=== PATIENT | female | born 1960 | race Hispanic/Latino ===

== ENCOUNTER 2017-03-20 14:56 | Emergency (ER) | payer SELFPAY ==
[2017-03-20 15:39] VITALS: BP 135/94
--- NOTE | 2017-03-20 17:09 | XRay Report ---
FINAL REPORT EXAM: XR HUMERUS 2+V LT HISTORY: RT ARM PAIN/FALL COMPARISONS: None. FINDINGS: AP and lateral views left humerus Transverse fracture extends through the surgical neck of the left humerus. The greater tuberosity is fractured without significant displacement/angulation. Glenohumeral joint appears intact. Mild acromioclavicular osteoarthrosis. Acromioclavicular and coracoclavicular intervals are within normal limits. No other fractures are seen. IMPRESSION: Minimally displaced fractures involving the surgical neck and greater tuberosity of the left humerus.
[2017-03-20] MEDS ORDERED: NORCO 5/325 PO ONE (17:17)
[2017-03-20] MEDS ORDERED: ZOFRAN ODT PO ONE (17:17)
--- NOTE | 2017-03-20 17:26 | Emergency Department Report ---
Upper Extremity - HPI Chief Complaint: Extremity Injury, Upper Stated Complaint: LEFT ARM INJURY/FALL Time Seen by Provider: 03/20/17 17:07 Upper Extremity: Left Shoulder Occurred When: Today Mechanism: Fall Severity: moderate Symptoms: No Pain with Movement, No Deformity, No Limited Range of Movement, No Numbness, No Weakness, No Swelling, No Bruising/Ecchymosis, No Laceration or Abrasion Other History: 57-year-old female past medical history none presents with complaint of left shoulder pain status post mechanical fall. While trying to kill an insect in her home she swatted at it lost her balance fell onto her left shoulder and felt immediate sharp pain. Patient is having significant difficulty ranging her left shoulder. Denies any loss of consciousness denies any other injuries. Patient is awake alert and oriented 3 accompanied by her mother and states the pain is currently 9 out of 10. ED Review of Systems ROS: Stated complaint: LEFT ARM INJURY/FALL Other details as noted in HPI Constitutional: denies: chills, fever Eyes: denies: eye pain, eye discharge, vision change ENT: denies: ear pain, throat pain Respiratory: denies: cough, shortness of breath, wheezing Cardiovascular: denies: chest pain, palpitations Endocrine: no symptoms reported Gastrointestinal: denies: abdominal pain, nausea, diarrhea Genitourinary: denies: urgency, dysuria, discharge Musculoskeletal: denies: back pain, joint swelling, arthralgia Skin: denies: rash, lesions Neurological: denies: headache, weakness, paresthesias Psychiatric: denies: anxiety, depression Hematological/Lymphatic: denies: easy bleeding, easy bruising ED Past Medical Hx - Past Medical History Previous Medical History?: No - Surgical History Past Surgical History?: No - Social History Smoking Status: Current Every Day Smoker Substance Use Type: None - Medications Home Medications: Home Medications Medication Instructions Recorded Confirmed Last Taken Type HYDROcodone/APAP 5-325 [Cortez 1 each PO Q6HR PRN #20 tablet 03/20/17 Unknown Rx 5/325] Naproxen [Naprosyn TAB] 500 mg PO BID PRN #30 tablet 03/20/17 Unknown Rx Upper Extremity Exam - Exam General: Vital signs noted. No distress. Alert and acting appropriately. Head and Torso: No HEENT Abnormality, No Neck Tenderness, No Chest/Lungs Abnormality, No Abdominal Tenderness, No Back Tenderness Shoulder Exam: Yes Shoulder Tenderness (tenderness on palpation left shoulder), No Clavicle Tenderness, No Normal Range of Motion in Shoulder (patient cannot range rotate internally externally or abduct or abduct his left shoulder secondary to severe pain), No Shoulder Deformity, No AC Joint Tenderness Arm Exam: No Arm/Humerus Tenderness, No Arm Deformity Elbow: No Elbow Tenderness, No Normal Range of Motion in Elbow, No Elbow Deformity Forearm: No Forearm Tenderness, No Forearm Deformity, No Pain with Pronation, No Pain with Supination Wrist: Yes Normal ROM in Wrist, No Wrist Tenderness, No Wrist Deformity, No Snuffbox Tenderness, No Pain with Axial Thumb Compression Hand: Yes Normal ROM in Digit(s), No Hand Tenderness, No Hand Deformity, No Digit Tenderness, No Digit(s) Deformity, No Tendon Dysfunction CMS Exam: Yes Normal Distal Pulses (distal radial brachial and ulnar pulses strong to palpation), Yes Normal Capillary Refill (capillary refill less than one second all fingers left hand), Yes Normal Distal Sensation (distal sensation proprioception and 2. discrimination intact left upper extremity), No Broken Skin Front/Back of Body, Lg (Color): 1 - severe pain on palpation here ED Course Vital Signs 03/20/17 15:33 Temperature 98.5 F Pulse Rate 97 H Respiratory 18 Rate Blood Pressure 135/94 O2 Sat by Pulse 99 Oximetry ED Medical Decision Making - Medical Decision Making A/P: Left shoulder pain, left humerus fracture 1-patient placed in left shoulder immobilizer 2-left upper extremity neurovascularly intact distal sensation and distal pulses intact on clinical exam 3-short course Cortez and naproxen when necessary 4-I stressed the importance of follow-up with an orthopedic physician to the patient. She stated she understood the clinical importance of following up with an orthopedic doctor. Conversation discussed with her mother at bedside. Critical care attestation.: If time is entered above; I have spent that time in minutes in the direct care of this critically ill patient, excluding procedure time. ED Disposition Clinical Impression: Fracture of humerus, proximal, left, closed Qualifiers: Encounter type: initial encounter Fracture morphology: other fracture Fracture alignment: nondisplaced Qualified Code(s): S42.295A - Other nondisplaced fracture of upper end of left humerus, initial encounter for closed fracture Humerus fracture Qualifiers: Encounter type: initial encounter Humerus Location: greater tuberosity Fracture type: closed Fracture alignment: nondisplaced Laterality: left Qualified Code(s): S42.255A - Nondisplaced fracture of greater tuberosity of left humerus, initial encounter for closed fracture Disposition: TO HOME OR SELFCARE Is pt being admited?: No Does the pt Need Aspirin: No Condition: Stable Instructions: RICE Therapy (ED), Arm Fracture in Adults (ED) Prescriptions: HYDROcodone/APAP 5-325 [Cortez 5/325] 1 each PO Q6HR PRN #20 tablet PRN Reason: Pain Naproxen [Naprosyn TAB] 500 mg PO BID PRN #30 tablet PRN Reason: Pain Referrals: YOVANI BOLTON MD [Staff Physician] - 3-5 Days [facility] [Provider Group] - 3-5 Days [facility] [Outside] - 3-5 Days [facility] [Outside] - 3-5 Days Forms: Accompanied Note, Work/School Release Form(ED) Time of Disposition: 17:45
== END 2017-03-20 18:09 | disposition home or self-care (01) ==
LOC: ED 14:56
DX: S42.202A Unspecified fracture of upper end of left humerus, initial encounter for closed fracture (principal); F17.210 Nicotine dependence, cigarettes, uncomplicated; W18.30XA Fall on same level, unspecified, initial encounter; Y93.89 Activity, other specified; Y92.009 Unspecified place in unspecified non-institutional (private) residence as the place of occurrence of the external cause; Y99.8 Other external cause status
CPT/HCPCS: 99284; Q0162

== ENCOUNTER 2021-09-25 07:33 | Inpatient (IN) | payer SELFPAY ==
[2021-09-25] MEDS ORDERED: ONDANSETRON 4 MG/2 ML INJ IV ONE (08:12)
[2021-09-25] MEDS ORDERED: SODIUM CHLORIDE 0.9% 1000 ML 1,000 ML IV ONE (08:12)
--- NOTE | 2021-09-25 08:15 | Emergency Department Report ---
HPI - General Chief Complaint: Chest Pain PUI?: No Time Seen by Provider: 09/25/21 08:04 - HPI HPI: This is the third day that the patient has had a mostly constant left presternal burning chest pain radiating to her upper left back associated with many episodes of vomiting of clear emesis. She denies diaphoresis shortness of br eath pleurisy diarrhea abdominal pain or any other associated symptoms. Nothing makes it better nor worse other than fluids which makes it worse. ED Past Medical Hx - Past Medical History Previous Medical History?: No - Surgical History Past Surgical History?: No - Family History Family history: no significant - Social History Smoking Status: Current Every Day Smoker Substance Use Type: None - Medications Home Medications: Home Medications Medication Instructions Recorded Confirmed Last Taken Type No Known Home Medications [No 09/25/21 09/25/21 Unknown History Reported Home Medications] ED Review of Systems ROS: Stated complaint: DIFFICULTY BREATHING/CHEST PAIN Other details as noted in HPI Comment: All other systems reviewed and negative Physical Exam - Physical Exam Vital Signs: Vital Signs 09/25/21 07:58 Temperature 97.9 F Pulse Rate 119 H Respiratory 25 H Rate Blood Pressure 118/74 [Left] O2 Sat by Pulse 97 Oximetry Physical Exam: Physical Exam Constitutional: General: No acute distress. Appearance: No diaphoresis. HENT: Head: Normocephalic. Mucosal membranes seem dry. Eyes: Pupils: Pupils are equal, round, and reactive to light. Neck: Musculoskeletal: Normal range of motion. Cardiovascular: Rate and Rhythm: Normal rate and regular rhythm. Pulses: Intact distal pulses. Heart sounds: Normal heart sounds. No murmur. Pulmonary: Effort: No respiratory distress. Breath sounds: No wheezing or rales. Chest: Chest wall: No tenderness. Abdominal: General: There is no distension. Palpations: There is no mass. Tenderness: There is no abdominal tenderness. There is no guarding or rebound. Musculoskeletal: Normal range of motion. Skin: General: Skin is warm and dry. Neurological: Mental Status: Alert and oriented to person, place, and time. Psychiatric: Mood and Affect: Mood and affect normal. Cognition and Memory: Memory normal. Judgment: Judgment normal. ED Course Vital Signs 09/25/21 07:58 Temperature 97.9 F Pulse Rate 119 H Respiratory 25 H Rate Blood Pressure 118/74 [Left] O2 Sat by Pulse 97 Oximetry - Reevaluation(s) Reevaluation #1: 09/25/21 09:45 On evaluation the patient is more comfortable. Her troponin was elevated at 1.6. Her chest x-ray was normal. Her EKG done at 8:49 AM showed rate of 113, tachycardia. The rhythm is sinus tachycardia. There are some ST segment depressions globally consistent with possible ischemia. I went ahead and gave the patient some aspirin and also some Lovenox and the patient will be admitted. I spoke with who will be admitting the patient. Total critical care time, 30 minutes. 09/25/21 09:46 ED Medical Decision Making - Lab Data Result diagrams: 09/25/21 08:36 09/25/21 08:36 Critical care attestation.: If time is entered above; I have spent that time in minutes in the direct care of this critically ill patient, excluding procedure time. ED Disposition Clinical Impression: Non-STEMI (non-ST elevated myocardial infarction) Disposition: 02 [facility] Is pt being admited?: Yes Does the pt Need Aspirin: Yes Condition: Serious
--- NOTE | 2021-09-25 08:31 | XRay Report ---
CHEST 1 VIEW INDICATION / CLINICAL INFORMATION: Chest Pain. COMPARISON: None available. FINDINGS: SUPPORT DEVICES: None. HEART / MEDIASTINUM: No significant abnormality. LUNGS / PLEURA: The lungs are clear. No pneumothorax. BONES: No significant osseous abnormality. ADDITIONAL FINDINGS: No significant additional findings. IMPRESSION: 1. No active cardiopulmonary disease. Signer Name: Sudheer Dover II, MD Signed: 09/25/2021 8:27 AM Workstation Name: [id number]
[2021-09-25 08:55] LABS: Basophils % (Auto) 0.5 % (0.0-1.8); Eosinophils % (Auto) 0.1 % (0.0-4.3); Lymphocytes # (Auto) 1.1 K/mm3 (1.2-5.4); Lymphocytes % (Auto) 12.1 % (13.4-35.0); Mean Corpuscular HGB Conc 37 % (30-34); Mean Corpuscular Volume 93 fl (79-97); Monocytes # (Auto) 0.5 K/mm3 (0.0-0.8); Monocytes % (Auto) 5.8 % (0.0-7.3); Platelet Count 257 K/mm3 (140-440); Red Cell Distribution Width 13.7 % (13.2-15.2)
[2021-09-25 08:56] LABS: Hematocrit 47.4 % (30.3-42.9); Hemoglobin 17.3 gm/dl (10.1-14.3)
[2021-09-25 09:18] LABS: Alanine Aminotransferase 271 units/L (7-56); Albumin 4.3 g/dL (3.9-5); Blood Urea Nitrogen 12 mg/dL (7-17); Calcium 9.7 mg/dL (8.4-10.2); Hemolysis Index 5
[2021-09-25 09:28] LABS: BUN/Creatinine Ratio 17
[2021-09-25] MEDS ORDERED: ASPIRIN 81 MG TAB CHEW ONE (09:34)
[2021-09-25 09:46] LABS: Chol/HDL Ratio 6.57 %; HDL Cholesterol 33 mg/dL (40-59); LDL Cholesterol,Direct 178 mg/dL (50-130)
[2021-09-25] MEDS ORDERED: ENOXAPARIN 100 MG/1 ML INJ SUB-Q ONE (10:00)
[2021-09-25] MEDS ORDERED: oxyCODONE /ACETAMINOPHEN 5-325MG TAB PO PRN (10:40)
[2021-09-25] MEDS ORDERED: ONDANSETRON 4 MG/2 ML INJ IV PRN (10:40)
[2021-09-25] MEDS ORDERED: ACETAMINOPHEN 325 MG TAB PO PRN (10:40)
[2021-09-25] MEDS ORDERED: DOCUSATE SODIUM 100 MG CAP PO PRN (10:40)
[2021-09-25] MEDS ORDERED: MORPHINE 4 MG/1 ML INJ IV PRN (10:40)
[2021-09-25] MEDS ORDERED: ASPIRIN 81 MG TAB CHEW PO ONE (11:03)
--- NOTE | 2021-09-25 11:05 | History and Physical Report ---
History of Present Illness Date of examination: 09/25/21 Date of admission: 09/25/2021 Chief complaint: Chest pain History of present illness: The patient is a 62-year-old female with no significant past medical history aside from tobacco dependence who presented with 3 days of left sternal chest pain with radiation to her back in addition to nonbloody, nonbilious emesis. Patient denies any diaphoresis, shortness of breath, dyspnea, peripheral edema, recent travel, hormone treatment, immobilization, or trauma. In the ED the patient was found to be tachycardic to 119 and tachypneic to 25. The patient's blood pressure was within normal limits and she was saturating 97% on room air. Patient's labs were remarkable for elevated troponin of 1.620, hyponatremia of 132, and hyperlipidemia. Patient underwent chest x-ray that was unremarkable. In the ED, the patient was administered Zofran and IV fluids. The patient will be admitted to the medicine service for management of NSTEMI. Past History Past Medical History: No medical history Past Surgical History: No surgical history Social history: , lives with family, smoking, full code Family history: hypertension Medications and Allergies Allergies Allergy/AdvReac Type Severity Reaction Status Date / Time No Known Allergies Allergy Verified 09/25/21 09:13 Home Medications Medication Instructions Recorded Confirmed Last Taken Type No Known Home Medications [No 09/25/21 09/25/21 Unknown History Reported Home Medications] Active Meds: Active Medications Acetaminophen (Acetaminophen 325 Mg Tab) 650 mg PO Q4H PRN PRN Reason: Pain MILD(1-3)/Fever >100.5/DUARTE Docusate Sodium (Docusate Sodium 100 Mg Cap) 100 mg PO BID PRN PRN Reason: Constipation Famotidine (Famotidine 20 Mg Tab) 20 mg PO BID BUCK Heparin Sodium (Porcine) (Heparin 10,000 Units/10 Ml Vial) 3,000 unit IV ONCE ONE Stop: 09/25/21 10:53 Heparin Sodium/Sodium Chloride (Heparin/ 0.45% Nacl-25,000 Unit/500 Ml) 25,000 unit in 500 mls @ 0 mls/hr IV TITRATE BUCK; Protocol Morphine Sulfate (Morphine 4 Mg/1 Ml Inj) 2 mg IV Q4H PRN PRN Reason: Pain , Severe (7-10) Ondansetron HCl (Ondansetron 4 Mg/2 Ml Inj) 4 mg IV Q8H PRN PRN Reason: Nausea And Vomiting Oxycodone/Acetaminophen (Oxycodone /Acetaminophen 5-325mg Tab) 1 tab PO Q6H PRN PRN Reason: Pain, Moderate (4-6) Sodium Chloride (Sodium Chloride 0.9% 10 Ml Flush Syringe) 10 ml IV BID BUCK Sodium Chloride (Sodium Chloride 0.9% 10 Ml Flush Syringe) 10 ml IV PRN PRN PRN Reason: LINE FLUSH Review of Systems All systems: negative Cardiovascular: chest pain Gastrointestinal: nausea, vomiting Exam - Constitutional Vitals: Temp Pulse Resp BP Pulse Ox 97.9 F 119 H 25 H 118/74 98 09/25/21 07:58 09/25/21 07:58 09/25/21 07:58 09/25/21 07:58 09/25/21 08:15 General appearance: Present: no acute distress, well-nourished - EENT Eyes: Present: PERRL, EOM intact ENT: hearing intact, clear oral mucosa, dentition normal - Neck Neck: Present: supple, normal ROM - Respiratory Respiratory effort: normal Respiratory: bilateral: CTA - Cardiovascular Rhythm: regular Heart Sounds: Present: S1 & S2 - Extremities Extremities: no ischemia, pulses intact, pulses symmetrical, No edema, normal temperature, normal color, Full ROM Peripheral Pulses: within normal limits - Abdominal General gastrointestinal: Present: soft, non-tender, non-distended, normal bowel sounds Female genitourinary: Present: deferred - Rectal Rectal Exam: deferred - Integumentary Integumentary: Present: clear, warm, dry - Musculoskeletal Musculoskeletal: strength equal bilaterally - Psychiatric Psychiatric: appropriate mood/affect, intact judgment & insight, memory intact, cooperative - Neurologic Neurologic: CNII-XII intact, moves all extremities - Allied Health Allied health notes reviewed: nursing HEART Score - HEART Score Troponin: Troponin T 1.620 ng/mL (0.00-0.029) H* 09/25/21 08:36 Results - Labs CBC & Chem 7: 09/25/21 08:36 09/25/21 08:36 Labs: Laboratory Last Values WBC 8.9 K/mm3 (4.5-11.0) 09/25/21 08:36 RBC 5.10 M/mm3 (3.65-5.03) H 09/25/21 08:36 Hgb 17.3 gm/dl (10.1-14.3) H 09/25/21 08:36 Hct 47.4 % (30.3-42.9) H 09/25/21 08:36 MCV 93 fl (79-97) 09/25/21 08:36 MCH 34 pg (28-32) H 09/25/21 08:36 MCHC 37 % (30-34) H 09/25/21 08:36 RDW 13.7 % (13.2-15.2) 09/25/21 08:36 Plt Count 257 K/mm3 (140-440) 09/25/21 08:36 Lymph % (Auto) 12.1 % (13.4-35.0) L 09/25/21 08:36 [place] % (Auto) 5.8 % (0.0-7.3) 09/25/21 08:36 Eos % (Auto) 0.1 % (0.0-4.3) 09/25/21 08:36 Baso % (Auto) 0.5 % (0.0-1.8) 09/25/21 08:36 Lymph # (Auto) 1.1 K/mm3 (1.2-5.4) L 09/25/21 08:36 [place] # (Auto) 0.5 K/mm3 (0.0-0.8) 09/25/21 08:36 Eos # (Auto) 0.0 K/mm3 (0.0-0.4) 09/25/21 08:36 Baso # (Auto) 0.0 K/mm3 (0.0-0.1) 09/25/21 08:36 Seg Neutrophils % 81.5 % (40.0-70.0) H 09/25/21 08:36 Seg Neutrophils # 7.3 K/mm3 (1.8-7.7) 09/25/21 08:36 Sodium 132 mmol/L (137-145) L 09/25/21 08:36 Potassium 4.2 mmol/L (3.6-5.0) 09/25/21 08:36 Chloride 92.1 mmol/L (98-107) L 09/25/21 08:36 Carbon Dioxide 22 mmol/L (22-30) 09/25/21 08:36 Anion Gap 22 mmol/L 09/25/21 08:36 BUN 12 mg/dL (7-17) 09/25/21 08:36 Creatinine 0.7 mg/dL (0.6-1.2) 09/25/21 08:36 Estimated GFR > 60 ml/min 09/25/21 08:36 BUN/Creatinine Ratio 17 % 09/25/21 08:36 Glucose 156 mg/dL (65-100) H 09/25/21 08:36 Calcium 9.7 mg/dL (8.4-10.2) 09/25/21 08:36 Total Bilirubin 1.60 mg/dL (0.1-1.2) H 09/25/21 08:36 AST 398 units/L (5-40) H 09/25/21 08:36 ALT 271 units/L (7-56) H 09/25/21 08:36 Alkaline Phosphatase 86 units/L (35-129) 09/25/21 08:36 Troponin T 1.620 ng/mL (0.00-0.029) H* 09/25/21 08:36 Total Protein 8.1 g/dL (6.3-8.2) 09/25/21 08:36 Albumin 4.3 g/dL (3.9-5) 09/25/21 08:36 Albumin/Globulin Ratio 1.1 % 09/25/21 08:36 Triglycerides 97 mg/dL (2-149) 09/25/21 08:36 Cholesterol 217 mg/dL (50-199) H 09/25/21 08:36 LDL Cholesterol Direct 178 mg/dL (50-130) H 09/25/21 08:36 HDL Cholesterol 33 mg/dL (40-59) L 09/25/21 08:36 Cholesterol/HDL Ratio 6.57 % 09/25/21 08:36 Lipase 35 units/L (13-60) 09/25/21 08:36 Assessment and Plan Assessment and plan: The patient is a 62-year-old female with no significant past medical history aside from tobacco dependence who presented with 3 days of left sternal chest pain with radiation to her back in addition to nonbloody, nonbilious emesis. Patient's labs were remarkable for elevated troponin of 1.620, hyponatremia of 132, and hyperlipidemia. Patient underwent chest x-ray that was unremarkable. The patient will be admitted to the medicine service for management of NSTEMI. #NSTEMI Troponin 1.620--> continuing to trend troponins Ordering aspirin 325 mg for antiplatelet effect, ordering telemetry, and initiating heparin drip with bolus Cardiology consulted; pending recs Continue as needed analgesics Ordering hemoglobin A1c for better risk stratification #SIRS Heart rate 119, respiratory rate 25 Likely secondary to chest pain and ACS as opposed to infectious etiology Continue to monitor. Should improve as chest pain resolves. #Hyperlipidemia Total cholesterol 217, HDL 33, LDL 178 ASCVD risk score indicates moderate to high intensity statin due to risk of cardiovascular event being 10.2%. Starting atorvastatin 40 mg daily. #Hyponatremia Sodium 132 Likely secondary to history of recurrent emesis. Continue to monitor with daily BMP. #Vomiting Continue as needed antiemetics. Continue to monitor. #Tobacco dependence #Tobacco/Smoking cessation counseling - Counseled patient about the importance of smoking cessation and the possible sequelae as a result of continued tobacco consumption. The patient expresses understanding. -Time: +15 mins #Advanced care planning -Disease education conducted, care plan discussed, diagnoses discussed, prognosis discussed, and patient acknowledges understanding with care plan -Time: +30 min Advance Directives: No VTE prophylaxis?: Chemical Plan of care discussed with patient/family: Yes
[2021-09-25 11:45] LABS: INR 1.01 (0.87-1.13); Partial Thromboplastin Time 31.7 Sec. (24.2-36.6)
--- NOTE | 2021-09-25 11:47 | Electrocardiograph Report ---
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
[2021-09-25] MEDS ORDERED: NITROGLYCERIN 0.4 MG TAB SUBL SL PRN (11:49)
[2021-09-25] MEDS: FAMOTIDINE 20 MG TAB PO SCH ×2 (12:06→22:35)
[2021-09-25] MEDS ORDERED: HEPARIN 10,000 UNITS/10 ML VIAL IV ONE (13:00)
[2021-09-25] MEDS: HEPARIN/ 0.45% NACL DRIP 25,000 UNIT/500 ML BAG IV SCH (17:49)
[2021-09-26] MEDS: HEPARIN/ 0.45% NACL DRIP 25,000 UNIT/500 ML BAG IV SCH ×2 (02:08→18:32)
[2021-09-26 06:51] LABS: BUN/Creatinine Ratio 34; Blood Urea Nitrogen 27 mg/dL (7-17); Hemolysis Index 12
[2021-09-26 06:53] LABS: Hematocrit 43.9 % (30.3-42.9); Hemoglobin 14.9 gm/dl (10.1-14.3); Mean Corpuscular HGB Conc 34 % (30-34); Mean Corpuscular Volume 95 fl (79-97); Platelet Count 187 K/mm3 (140-440); Red Cell Distribution Width 13.9 % (13.2-15.2)
[2021-09-26] MEDS: ASPIRIN 81 MG TAB CHEW PO SCH (09:08)
[2021-09-26] MEDS: FAMOTIDINE 20 MG TAB PO SCH ×2 (09:09→22:10)
--- NOTE | 2021-09-26 11:06 | Consultation ---
History of Present Illness Consult date: 09/26/21 Consult reason: elevated troponin History of present illness: 62-year-old female with no significant past medical history but a history of smoking presenting with substernal chest pain associated with nausea vomiting over the past few days initially did not seek medical attention but over subsequent days symptoms became more intense and presented to the emergency room she was stable her EKG showed no acute ST segment changes but serum troponin levels were significantly elevated patient admitted with a diagnosis of non-ST elevation CO. Past History Past Medical History: No medical history Past Surgical History: No surgical history Social history: , lives with family, smoking, full code Family history: hypertension Medications and Allergies Allergies Allergy/AdvReac Type Severity Reaction Status Date / Time No Known Allergies Allergy Verified 09/25/21 09:13 Home Medications Medication Instructions Recorded Confirmed Last Taken Type No Known Home Medications [No 09/25/21 09/25/21 Unknown History Reported Home Medications] Active Meds: Active Medications Acetaminophen (Acetaminophen 325 Mg Tab) 650 mg PO Q4H PRN PRN Reason: Pain MILD(1-3)/Fever >100.5/DUARTE Aspirin (Aspirin 81 Mg Tab Chew) 81 mg PO QDAY [facility] Last Admin: 09/26/21 09:08 Dose: 81 mg Atorvastatin Calcium (Atorvastatin 40 Mg Tab) 40 mg PO QHS [facility] Last Admin: 09/25/21 22:35 Dose: 40 mg Docusate Sodium (Docusate Sodium 100 Mg Cap) 100 mg PO BID PRN PRN Reason: Constipation Famotidine (Famotidine 20 Mg Tab) 20 mg PO BID [facility] Last Admin: 09/26/21 09:09 Dose: 20 mg Heparin Sodium/Sodium Chloride (Heparin/ 0.45% Nacl-25,000 Unit/500 Ml) 25,000 unit in 500 mls @ 16 mls/hr IV TITRATE [facility]; Protocol Last Admin: 09/26/21 02:08 Dose: 850 units/hr, 17 mls/hr Morphine Sulfate (Morphine 4 Mg/1 Ml Inj) 2 mg IV Q4H PRN PRN Reason: Pain , Severe (7-10) Nitroglycerin (Nitroglycerin 0.4 Mg Tab Subl) 0.4 mg SL .Q5MIN PRN PRN Reason: Chest Pain Ondansetron HCl (Ondansetron 4 Mg/2 Ml Inj) 4 mg IV Q8H PRN PRN Reason: Nausea And Vomiting Oxycodone/Acetaminophen (Oxycodone /Acetaminophen 5-325mg Tab) 1 tab PO Q6H PRN PRN Reason: Pain, Moderate (4-6) Sodium Chloride (Sodium Chloride 0.9% 10 Ml Flush Syringe) 10 ml IV BID BUCK Last Admin: 09/26/21 09:09 Dose: 10 ml Sodium Chloride (Sodium Chloride 0.9% 10 Ml Flush Syringe) 10 ml IV PRN PRN PRN Reason: LINE FLUSH Review of Systems All systems: negative Cardiovascular: chest pain Physical Examination Vital Signs Temp Pulse Resp BP Pulse Ox 97.9 F 119 H 25 H 118/74 97 09/25/21 07:58 09/25/21 07:58 09/25/21 07:58 09/25/21 07:58 09/25/21 07:58 General appearance: no acute distress, well-nourished HEENT: Positive: PERRL, Mucus Membranes Moist Neck: Positive: neck supple, trachea midline Cardiac: Positive: Reg Rate and Rhythm, S1/S2. Negative: S3, S4, Audible Murmur Lungs: Positive: clear to auscultation, No Wheeze, Rales, Rhonchi Neuro: Positive: Grossly Intact Abdomen: Positive: Soft, Active Bowel Sounds Extremities: Absent: edema Results 09/26/21 05:59 09/26/21 05:59 Coagulation 09/25/21 Range/Units 11:13 PT 14.4 (12.2-14.9) Sec. INR 1.01 (0.87-1.13) APTT 31.7 (24.2-36.6) Sec. CBC 09/26/21 Range/Units 05:59 WBC 5.7 (4.5-11.0) K/mm3 RBC 4.60 (3.65-5.03) M/mm3 Hgb 14.9 H (10.1-14.3) gm/dl Hct 43.9 H (30.3-42.9) % Plt Count 187 (140-440) K/mm3 Lymph # (Auto) [employer] [place] # (Auto) [employer] Eos # (Auto) [employer] Baso # (Auto) [employer] Comprehensive Metabolic Panel 09/26/21 Range/Units 05:59 Sodium 136 L (137-145) mmol/L Potassium 4.5 (3.6-5.0) mmol/L Chloride 99.9 (98-107) mmol/L Carbon Dioxide 24 (22-30) mmol/L BUN 27 H (7-17) mg/dL Creatinine 0.8 (0.6-1.2) mg/dL Glucose 110 H (65-100) mg/dL Calcium 9.0 (8.4-10.2) mg/dL EKG interpretations - Telemetry EKG Rhythm: Sinus Rhythm - EKG Sinus rhythms and dysrhythmias: sinus rhythm Chamber hypertrophy or enlargement: left ventricular hypertro Repolarization changes or abnormalities: nonspecific abnormality, ST segment, and/or T wave Assessment and Plan 1. Acute non-ST segment elevation CO 2. Chronic obstructive pulmonary disease Plan. Patient is currently clinically stable she is on platelet therapy as well as heparin. Patient will be started on beta-blockers echocardiogram will be done to assess left ventricular function Patient will be scheduled for a left heart catheterization on Tuesday
--- NOTE | 2021-09-26 12:12 | Progress Note ---
Assessment and Plan Assessment and plan: The patient is a 62-year-old female with no significant past medical history aside from tobacco dependence who presented with 3 days of left sternal chest pain with radiation to her back in addition to nonbloody, nonbilious emesis. Patient's labs were remarkable for elevated troponin of 1.620, hyponatremia of 132, and hyperlipidemia. Patient underwent chest x-ray that was unremarkable. The patient will be admitted to the medicine service for management of NSTEMI. #NSTEMI Troponin 1.620--> 2.1-->2.8-->3.150-->2.870-->2.130 Ordered aspirin 325 mg for antiplatelet effect, ordering telemetry, and continue heparin drip with bolus Starting Plavix 75mg and getting TTE to evaluate EF Cardiology consulted; appreciate recs. Left heart catherization planned for Tuesday. Continue as needed analgesics Ordering hemoglobin A1c for better risk stratification #SIRS- resolved Heart rate 119, respiratory rate 25 Likely secondary to chest pain and ACS as opposed to infectious etiology Continue to monitor. Should improve as chest pain resolves. #Hyperlipidemia Total cholesterol 217, HDL 33, LDL 178 ASCVD risk score indicates moderate to high intensity statin due to risk of cardiovascular event being 10.2%. Continue atorvastatin 40 mg daily. #Hyponatremia Sodium 132 Likely secondary to history of recurrent emesis. Continue to monitor with daily BMP. #Vomiting Continue as needed antiemetics. Continue to monitor. #Tobacco dependence #Tobacco/Smoking cessation counseling - Counseled patient about the importance of smoking cessation and the possible sequelae as a result of continued tobacco consumption. The patient expresses understanding. -Time: +15 mins #Advanced care planning -Disease education conducted, care plan discussed, diagnoses discussed, prognosis discussed, and patient acknowledges understanding with care plan -Time: +30 min Disposition Plan: Continue medical management Total Time Spent with Patient (Minutes): 45 minutes History Interval history: Patient had a increase in her troponins with a max of 3.150. Hospitalist Physical - Constitutional Vitals: Temp Pulse Resp BP Pulse Ox 97.6 F 85 18 92/63 97 09/26/21 07:24 09/26/21 07:24 09/26/21 08:37 09/26/21 07:24 09/26/21 08:37 General appearance: Present: no acute distress, well-nourished - EENT Eyes: Present: PERRL, EOM intact ENT: hearing intact, clear oral mucosa, dentition normal - Neck Neck: Present: supple, normal ROM - Respiratory Respiratory effort: normal Respiratory: right: wheezing (Wheezing in right lower lobes), bilateral: CTA - Cardiovascular Rhythm: regular Heart Sounds: Present: S1 & S2 - Extremities Extremities: no ischemia, pulses intact, pulses symmetrical, No edema, normal temperature, normal color, Full ROM Peripheral Pulses: within normal limits - Abdominal General gastrointestinal: soft, non-tender, non-distended, normal bowel sounds - Integumentary Integumentary: Present: clear, warm, dry - Psychiatric Psychiatric: appropriate mood/affect, intact judgment & insight, memory intact, cooperative - Neurologic Neurologic: CNII-XII intact, moves all extremities - Allied Health Allied health notes reviewed: nursing HEART Score - HEART Score Troponin: Troponin T 2.130 ng/mL (0.00-0.029) H* D 09/26/21 05:59 Results - Labs CBC & Chem 7: 09/26/21 05:59 09/26/21 05:59 Labs: Laboratory Last Values WBC 5.7 K/mm3 (4.5-11.0) 09/26/21 05:59 RBC 4.60 M/mm3 (3.65-5.03) 09/26/21 05:59 Hgb 14.9 gm/dl (10.1-14.3) H 09/26/21 05:59 Hct 43.9 % (30.3-42.9) H 09/26/21 05:59 MCV 95 fl (79-97) 09/26/21 05:59 MCH 32 pg (28-32) 09/26/21 05:59 MCHC 34 % (30-34) 09/26/21 05:59 RDW 13.9 % (13.2-15.2) 09/26/21 05:59 Plt Count 187 K/mm3 (140-440) 09/26/21 05:59 Lymph % (Auto) District Representative 09/26/21 05:59 [place] % (Auto) District Representative 09/26/21 05:59 Eos % (Auto) District Representative 09/26/21 05:59 Baso % (Auto) District Representative 09/26/21 05:59 Lymph # (Auto) District Representative 09/26/21 05:59 [place] # (Auto) District Representative 09/26/21 05:59 Eos # (Auto) District Representative 09/26/21 05:59 Baso # (Auto) District Representative 09/26/21 05:59 Seg Neutrophils % District Representative 09/26/21 05:59 Seg Neutrophils # District Representative 09/26/21 05:59 PT 14.4 Sec. (12.2-14.9) 09/25/21 11:13 INR 1.01 (0.87-1.13) 09/25/21 11:13 APTT 31.7 Sec. (24.2-36.6) 09/25/21 11:13 Heparin Anti-Xa Level 0.28 U.I./ml (0.3-0.7) L 09/26/21 00:25 Sodium 136 mmol/L (137-145) L 09/26/21 05:59 Potassium 4.5 mmol/L (3.6-5.0) 09/26/21 05:59 Chloride 99.9 mmol/L (98-107) 09/26/21 05:59 Carbon Dioxide 24 mmol/L (22-30) 09/26/21 05:59 Anion Gap 17 mmol/L 09/26/21 05:59 BUN 27 mg/dL (7-17) H 09/26/21 05:59 Creatinine 0.8 mg/dL (0.6-1.2) 09/26/21 05:59 Estimated GFR > 60 ml/min 09/26/21 05:59 BUN/Creatinine Ratio 34 % 09/26/21 05:59 Glucose 110 mg/dL (65-100) H 09/26/21 05:59 Calcium 9.0 mg/dL (8.4-10.2) 09/26/21 05:59 Total Bilirubin 1.60 mg/dL (0.1-1.2) H 09/25/21 08:36 AST 398 units/L (5-40) H 09/25/21 08:36 ALT 271 units/L (7-56) H 09/25/21 08:36 Alkaline Phosphatase 86 units/L (35-129) 09/25/21 08:36 Troponin T 2.130 ng/mL (0.00-0.029) H* D 09/26/21 05:59 Total Protein 8.1 g/dL (6.3-8.2) 09/25/21 08:36 Albumin 4.3 g/dL (3.9-5) 09/25/21 08:36 Albumin/Globulin Ratio 1.1 % 09/25/21 08:36 Triglycerides 97 mg/dL (2-149) 09/25/21 08:36 Cholesterol 217 mg/dL (50-199) H 09/25/21 08:36 LDL Cholesterol Direct 178 mg/dL (50-130) H 09/25/21 08:36 HDL Cholesterol 33 mg/dL (40-59) L 09/25/21 08:36 Cholesterol/HDL Ratio 6.57 % 09/25/21 08:36 Lipase 35 units/L (13-60) 09/25/21 08:36 Ospina/IV: Voiding Method Toilet Active Medications - Current Medications Current Medications: Generic Name Dose Route Start Last Admin Trade Name Freq PRN Reason Stop Dose Admin Acetaminophen 650 mg 09/25/21 10:40 Acetaminophen 325 Mg Tab PO Q4H PRN Pain MILD(1-3)/Fever >100.5/DUARTE Aspirin 81 mg 09/26/21 10:00 09/26/21 09:08 Aspirin 81 Mg Tab Chew PO 81 mg QDAY BUCK Administration Atorvastatin Calcium 40 mg 09/25/21 22:00 09/25/21 22:35 Atorvastatin 40 Mg Tab PO 40 mg QHS BUCK Administration Clopidogrel Bisulfate 75 mg 09/26/21 12:00 Clopidogrel 75 Mg Tab PO QDAY [facility] Docusate Sodium 100 mg 09/25/21 10:40 Docusate Sodium 100 Mg Cap PO BID PRN Constipation Famotidine 20 mg 09/25/21 12:00 09/26/21 09:09 Famotidine 20 Mg Tab PO 20 mg BID BUCK Administration Heparin Sodium/Sodium Chloride 25,000 unit in 500 mls @ 16 mls/hr 09/25/21 13:00 09/26/21 02:08 Heparin/ 0.45% Nacl-25,000 Unit/500 Ml IV 850 units/hr TITRATE BUCK 17 mls/hr Administration Protocol 800 UNITS/HR Metoprolol Tartrate 50 mg 09/26/21 22:00 Metoprolol Tartrate 50 Mg Tab PO BID [facility] Morphine Sulfate 2 mg 09/25/21 10:40 Morphine 4 Mg/1 Ml Inj IV Q4H PRN Pain , Severe (7-10) Nitroglycerin 0.4 mg 09/25/21 11:49 Nitroglycerin 0.4 Mg Tab Subl SL .Q5MIN PRN Chest Pain Ondansetron HCl 4 mg 09/25/21 10:40 Ondansetron 4 Mg/2 Ml Inj IV Q8H PRN Nausea And Vomiting Oxycodone/Acetaminophen 1 tab 09/25/21 10:40 Oxycodone /Acetaminophen 5-325mg Tab PO Q6H PRN Pain, Moderate (4-6) Sodium Chloride 10 ml 09/25/21 22:00 09/26/21 09:09 Sodium Chloride 0.9% 10 Ml Flush Syringe IV 10 ml BID BUCK Administration Sodium Chloride 10 ml 09/25/21 10:40 Sodium Chloride 0.9% 10 Ml Flush Syringe IV PRN PRN LINE FLUSH
[2021-09-26] MEDS: CLOPIDOGREL 75 MG TAB PO SCH (12:50)
[2021-09-26] MEDS: METOPROLOL TARTRATE 50 MG TAB PO SCH (22:07)
[2021-09-27 03:22] LABS: Hematocrit 39.1 % (30.3-42.9); Hemoglobin 13.6 gm/dl (10.1-14.3)
[2021-09-27 03:38] LABS: Blood Urea Nitrogen 18 mg/dL (7-17); Calcium 8.9 mg/dL (8.4-10.2); Hemolysis Index 4
[2021-09-27 03:44] LABS: BUN/Creatinine Ratio 30
--- NOTE | 2021-09-27 11:06 | Progress Note ---
Assessment and Plan 1. Acute non-ST segment elevation PR 2. Chronic obstructive pulmonary disease Echocardiogram shows normal left ventricular size and global left ventricular systolic function left ventricular ejection fraction of 50 to 55% Plan. Patient is currently stable asymptomatic she will be scheduled for left heart catheterization in the morning Subjective Date of service: 09/27/21 Principal diagnosis: Acute PR Interval history: No chest pains Objective Vital Signs Temp Pulse Resp BP BP Pulse Ox 09/27/21 08:11 97.4 F L 89 20 97/66 98 09/27/21 08:04 17 94 09/27/21 04:42 90/56 09/27/21 04:11 98.6 F 79 16 82/54 94 09/27/21 03:03 97 09/26/21 23:41 98.6 F 88 16 87/60 96 09/26/21 19:45 91 H 09/26/21 19:26 97.4 F L 91 H 16 92/66 98 09/26/21 15:22 97.6 F 97 H 18 99/66 97 09/26/21 11:33 97.3 F L 95 H 18 93/67 99 - Physical Examination General: Appears Well HEENT: Positive: PERRL, Mucus Membranes Moist Neck: Positive: neck supple, trachea midline Cardiac: Positive: Regular Rate, S1/S2, PMI, Dilated, Laterally Displaced. Negative: S3, S4 Lungs: Positive: clear to auscultation, No Wheeze, Rales, Rhonchi Neuro: Positive: Grossly Intact Abdomen: Positive: Soft, Active Bowel Sounds Extremities: Absent: edema - Labs and Meds CBC 09/27/21 Range/Units 03:08 Hgb 13.6 (10.1-14.3) gm/dl Hct 39.1 (30.3-42.9) % Plt Count 193 (140-440) K/mm3 Comprehensive Metabolic Panel 09/27/21 Range/Units 03:08 Sodium 133 L (137-145) mmol/L Potassium 4.1 (3.6-5.0) mmol/L Chloride 98.6 (98-107) mmol/L Carbon Dioxide 25 (22-30) mmol/L BUN 18 H (7-17) mg/dL Creatinine 0.6 (0.6-1.2) mg/dL Glucose 107 H (65-100) mg/dL Calcium 8.9 (8.4-10.2) mg/dL - EKG Sinus rhythms and dysrhythmias: sinus rhythm Chamber hypertrophy or enlargement: left ventricular hypertro Repolarization changes or abnormalities: nonspecific abnormality, ST segment, and/or T wave
[2021-09-27] MEDS: METOPROLOL TARTRATE 50 MG TAB PO SCH ×2 (11:40→21:08)
[2021-09-27] MEDS: CLOPIDOGREL 75 MG TAB PO SCH (11:40)
[2021-09-27] MEDS: ASPIRIN 81 MG TAB CHEW PO SCH (11:42)
[2021-09-27] MEDS: FAMOTIDINE 20 MG TAB PO SCH ×2 (11:44→21:09)
--- NOTE | 2021-09-27 15:15 | Progress Note ---
Assessment and Plan Assessment and plan: The patient is a 62-year-old female with no significant past medical history aside from tobacco dependence who presented with 3 days of left sternal chest pain with radiation to her back in addition to nonbloody, nonbilious emesis. Patient's labs were remarkable for elevated troponin of 1.620, hyponatremia of 132, and hyperlipidemia. Patient underwent chest x-ray that was unremarkable. The patient will be admitted to the medicine service for management of NSTEMI. #NSTEMI Troponin 1.620--> 2.1-->2.8-->3.150-->2.870-->2.130 Ordered aspirin 325 mg for antiplatelet effect, ordering telemetry, and continue heparin drip with bolus Continue Plavix 75mg. TTE revealing EF 30-35%, normal-sized LV, normal LV wall thickness, normal LV segmental wall motion, normal LV diastolic function, RV is mildly hypokinetic RVSP is 31.4 mmHg Cardiology consulted; appreciate recs. Left heart catherization planned for tomorrow. N.p.o. at midnight and coags ordered. Continue as needed analgesics Ordering hemoglobin A1c for better risk stratification #SIRS- resolved Heart rate 119, respiratory rate 25 Likely secondary to chest pain and ACS as opposed to infectious etiology Continue to monitor. Should improve as chest pain resolves. #Hyperlipidemia Total cholesterol 217, HDL 33, LDL 178 ASCVD risk score indicates moderate to high intensity statin due to risk of cardiovascular event being 10.2%. Continue atorvastatin 40 mg daily. #Hyponatremiaimproving Sodium 132--> 133 Likely secondary to history of recurrent emesis. Continue to monitor with daily BMP. #Vomiting Continue as needed antiemetics. Continue to monitor. #Tobacco dependence #Tobacco/Smoking cessation counseling - Counseled patient about the importance of smoking cessation and the possible sequelae as a result of continued tobacco consumption. The patient expresses understanding. -Time: +15 mins The high probability of a clinically significant, sudden or life threatening deterioration of the [cardiac] system(s) required my full and direct attention, intervention and personal management. The aggregate critical care time was [60] minutes. This time is in addition to time spent performing reported procedures but includes the following: [x] Data Review and interpretation [x] Patient assessment and monitoring of vital signs [x] Documentation [x] Medication orders and management Disposition Plan: Continue medical management Total Time Spent with Patient (Minutes): 45 minutes History Interval history: No acute events over night. The patient denies fevers, chills, nausea, vomiting, abdominal pain, chest pain/pressure, shortness of breath, urinary symptoms, weakness, or confusion. Hospitalist Physical - Constitutional Vitals: Temp Pulse Resp BP Pulse Ox 97.4 F L 81 20 97/66 98 09/27/21 08:11 09/27/21 11:40 09/27/21 08:11 09/27/21 08:11 09/27/21 08:11 General appearance: Present: no acute distress, well-nourished - EENT Eyes: Present: PERRL, EOM intact ENT: hearing intact, clear oral mucosa, dentition normal - Neck Neck: Present: supple, normal ROM - Respiratory Respiratory effort: normal Respiratory: bilateral: CTA - Cardiovascular Rhythm: regular Heart Sounds: Present: S1 & S2 - Extremities Extremities: no ischemia, pulses intact, pulses symmetrical, No edema, normal temperature, normal color, Full ROM Peripheral Pulses: within normal limits - Abdominal General gastrointestinal: soft, non-tender, non-distended, normal bowel sounds - Integumentary Integumentary: Present: clear, warm, dry - Psychiatric Psychiatric: appropriate mood/affect, intact judgment & insight, memory intact, cooperative - Neurologic Neurologic: CNII-XII intact, moves all extremities - Allied Health Allied health notes reviewed: nursing HEART Score - HEART Score Troponin: Troponin T 2.130 ng/mL (0.00-0.029) H* D 09/26/21 05:59 Results - Labs CBC & Chem 7: 09/27/21 03:08 09/27/21 03:08 Labs: Laboratory Last Values WBC 5.7 K/mm3 (4.5-11.0) 09/26/21 05:59 RBC 4.60 M/mm3 (3.65-5.03) 09/26/21 05:59 Hgb 13.6 gm/dl (10.1-14.3) 09/27/21 03:08 Hct 39.1 % (30.3-42.9) 09/27/21 03:08 MCV 95 fl (79-97) 09/26/21 05:59 MCH 32 pg (28-32) 09/26/21 05:59 MCHC 34 % (30-34) 09/26/21 05:59 RDW 13.9 % (13.2-15.2) 09/26/21 05:59 Plt Count 193 K/mm3 (140-440) 09/27/21 03:08 Lymph % (Auto) Examination Supervisor 09/26/21 05:59 [place] % (Auto) Examination Supervisor 09/26/21 05:59 Eos % (Auto) Examination Supervisor 09/26/21 05:59 Baso % (Auto) Examination Supervisor 09/26/21 05:59 Lymph # (Auto) Examination Supervisor 09/26/21 05:59 [place] # (Auto) Examination Supervisor 09/26/21 05:59 Eos # (Auto) Examination Supervisor 09/26/21 05:59 Baso # (Auto) Examination Supervisor 09/26/21 05:59 Seg Neutrophils % Examination Supervisor 09/26/21 05:59 Seg Neutrophils # Examination Supervisor 09/26/21 05:59 PT 14.4 Sec. (12.2-14.9) 09/25/21 11:13 INR 1.01 (0.87-1.13) 09/25/21 11:13 APTT 31.7 Sec. (24.2-36.6) 09/25/21 11:13 Heparin Anti-Xa Level 0.30 U.I./ml (0.3-0.7) 09/27/21 13:31 Sodium 133 mmol/L (137-145) L 09/27/21 03:08 Potassium 4.1 mmol/L (3.6-5.0) 09/27/21 03:08 Chloride 98.6 mmol/L (98-107) 09/27/21 03:08 Carbon Dioxide 25 mmol/L (22-30) 09/27/21 03:08 Anion Gap 14 mmol/L 09/27/21 03:08 BUN 18 mg/dL (7-17) H 09/27/21 03:08 Creatinine 0.6 mg/dL (0.6-1.2) 09/27/21 03:08 Estimated GFR > 60 ml/min 09/27/21 03:08 BUN/Creatinine Ratio 30 % 09/27/21 03:08 Glucose 107 mg/dL (65-100) H 09/27/21 03:08 Calcium 8.9 mg/dL (8.4-10.2) 09/27/21 03:08 Total Bilirubin 1.60 mg/dL (0.1-1.2) H 09/25/21 08:36 AST 398 units/L (5-40) H 09/25/21 08:36 ALT 271 units/L (7-56) H 09/25/21 08:36 Alkaline Phosphatase 86 units/L (35-129) 09/25/21 08:36 Troponin T 2.130 ng/mL (0.00-0.029) H* D 09/26/21 05:59 Total Protein 8.1 g/dL (6.3-8.2) 09/25/21 08:36 Albumin 4.3 g/dL (3.9-5) 09/25/21 08:36 Albumin/Globulin Ratio 1.1 % 09/25/21 08:36 Triglycerides 97 mg/dL (2-149) 09/25/21 08:36 Cholesterol 217 mg/dL (50-199) H 09/25/21 08:36 LDL Cholesterol Direct 178 mg/dL (50-130) H 09/25/21 08:36 HDL Cholesterol 33 mg/dL (40-59) L 09/25/21 08:36 Cholesterol/HDL Ratio 6.57 % 09/25/21 08:36 Lipase 35 units/L (13-60) 09/25/21 08:36 Ospina/IV: Voiding Method Toilet Active Medications - Current Medications Current Medications: Generic Name Dose Route Start Last Admin Trade Name Freq PRN Reason Stop Dose Admin Acetaminophen 650 mg 09/25/21 10:40 Acetaminophen 325 Mg Tab PO Q4H PRN Pain MILD(1-3)/Fever >100.5/DUARTE Aspirin 81 mg 09/26/21 10:00 09/27/21 11:42 Aspirin 81 Mg Tab Chew PO 81 mg QDAY BUCK Administration Atorvastatin Calcium 40 mg 09/25/21 22:00 09/26/21 22:10 Atorvastatin 40 Mg Tab PO 40 mg QHS BUCK Administration Clopidogrel Bisulfate 75 mg 09/26/21 12:00 09/27/21 11:40 Clopidogrel 75 Mg Tab PO 75 mg QDAY BUCK Administration Docusate Sodium 100 mg 09/25/21 10:40 Docusate Sodium 100 Mg Cap PO BID PRN Constipation Famotidine 20 mg 09/25/21 12:00 09/27/21 11:44 Famotidine 20 Mg Tab PO Not Given BID BUCK Heparin Sodium/Sodium Chloride 25,000 unit in 500 mls @ 16 mls/hr 09/25/21 13:00 09/27/21 14:51 Heparin/ 0.45% Nacl-25,000 Unit/500 Ml IV 1,000 units/hr TITRATE BUCK 20 mls/hr Titration Protocol 800 UNITS/HR Metoprolol Tartrate 50 mg 09/26/21 22:00 09/27/21 11:40 Metoprolol Tartrate 50 Mg Tab PO 50 mg BID BUCK Administration Morphine Sulfate 2 mg 09/25/21 10:40 Morphine 4 Mg/1 Ml Inj IV Q4H PRN Pain , Severe (7-10) Nitroglycerin 0.4 mg 09/25/21 11:49 Nitroglycerin 0.4 Mg Tab Subl SL .Q5MIN PRN Chest Pain Ondansetron HCl 4 mg 09/25/21 10:40 Ondansetron 4 Mg/2 Ml Inj IV Q8H PRN Nausea And Vomiting Oxycodone/Acetaminophen 1 tab 09/25/21 10:40 Oxycodone /Acetaminophen 5-325mg Tab PO Q6H PRN Pain, Moderate (4-6) Sodium Chloride 10 ml 09/25/21 22:00 09/27/21 11:44 Sodium Chloride 0.9% 10 Ml Flush Syringe IV 10 ml BID BUCK Administration Sodium Chloride 10 ml 09/25/21 10:40 Sodium Chloride 0.9% 10 Ml Flush Syringe IV PRN PRN LINE FLUSH
[2021-09-27] MEDS: HEPARIN/ 0.45% NACL DRIP 25,000 UNIT/500 ML BAG IV SCH (18:31)
[2021-09-28 07:11] LABS: Basophils # (Auto) 0.1 K/mm3 (0.0-0.1); Basophils % (Auto) 1.1 % (0.0-1.8); Eosinophils # (Auto) 0.1 K/mm3 (0.0-0.4); Eosinophils % (Auto) 1.1 % (0.0-4.3); Hematocrit 37.1 % (30.3-42.9); Hemoglobin 13.1 gm/dl (10.1-14.3); Lymphocytes # (Auto) 1.6 K/mm3 (1.2-5.4); Lymphocytes % (Auto) 32.5 % (13.4-35.0); Mean Corpuscular HGB Conc 35 % (30-34); Mean Corpuscular Volume 95 fl (79-97); Monocytes # (Auto) 0.5 K/mm3 (0.0-0.8); Monocytes % (Auto) 10.1 % (0.0-7.3); Platelet Count 184 K/mm3 (140-440); Red Cell Distribution Width 13.8 % (13.2-15.2)
[2021-09-28 07:21] LABS: INR 0.97 (0.87-1.13)
[2021-09-28 07:23] LABS: Blood Urea Nitrogen 13 mg/dL (7-17); Calcium 9.2 mg/dL (8.4-10.2); Hemolysis Index 10
[2021-09-28 07:24] LABS: BUN/Creatinine Ratio 22
[2021-09-28] MEDS ORDERED: NITROGLYCERIN SYRINGE 0 ML ONE (08:27)
[2021-09-28] MEDS ORDERED: HEPARIN/NS 5000 UNIT/500ML 1,000 ML IR ONE (08:27)
[2021-09-28] MEDS ORDERED: VERAPAMIL 5 MG/2 ML INJ ONE (08:27)
[2021-09-28] MEDS: CLOPIDOGREL 75 MG TAB PO SCH (09:57)
[2021-09-28] MEDS: ASPIRIN 81 MG TAB CHEW PO SCH (09:57)
[2021-09-28] MEDS ORDERED: SODIUM CHLORIDE 0.9% 500 ML 500 ML ONE (10:46)
[2021-09-28] MEDS: MIDAZOLAM 2 MG/2 ML INJ ONE ×3 (10:59→11:58)
[2021-09-28] MEDS: LIDOCAINE (1%) 10 MG/1 ML VIAL 20 ML MDV ONE ×2 (11:00→11:27)
[2021-09-28] MEDS ORDERED: SODIUM CHLORIDE 0.9% 500 ML 500 ML IV SCH (11:00)
[2021-09-28] MEDS: fentaNYL 100 MCG/2 ML INJ ONE ×3 (11:00→11:59)
[2021-09-28] MEDS: HEPARIN 10,000 UNITS/10 ML VIAL ONE ×2 (11:35→11:53)
[2021-09-28] MEDS ORDERED: ONDANSETRON 4 MG/2 ML INJ ONE (11:58)
[2021-09-28] MEDS ORDERED: NITROGLYCERIN SYRINGE 3 ML ONE (12:06)
[2021-09-28] MEDS ORDERED: CLOPIDOGREL 75 MG TAB ONE (12:26)
[2021-09-28] MEDS ORDERED: ALUM-MAG HYDROXIDE-SIMETHICONE 200-200-20MG/5ML ORAL LIQD 30 ML ONE (12:26)
--- NOTE | 2021-09-28 12:42 | Event Note ---
Date: 09/28/21 Patient underwent cardiac catheterization followed by coronary intervention and stent deployment to the circumflex system, see dictated report for details. Continue guideline directed medical therapy including dual antiplatelet therapy with Plavix and aspirin.
--- NOTE | 2021-09-28 13:55 | Cardiac Catherization Report ---
DATE OF SERVICE: 09/28/2021 CARDIAC CATHETERIZATION AND CORONARY ANGIOPLASTY REPORT REASON FOR PROCEDURE: The patient is a 61-year-old woman with COPD and tobacco abuse, who presented to the hospital with chest pain and elevated troponin levels consistent with a non-ST elevation myocardial infarction. A cardiac catheterization was recommended. PROCEDURES: 1. Left heart catheterization. 2. Selective left and right coronary angiography. 3. Left ventricular angiography. 4. Coronary angioplasty and stenting of the circumflex artery. 5. Sedation time start 11:23, end 12:17. DESCRIPTION OF PROCEDURE: The patient was prepped and draped in a sterile fashion after informed consent. The right femoral artery was entered using Seldinger technique, followed by placement of a 6-Colombian sheath. Selective left and right coronary angiography was performed using a #4 left Hans and a #4 right Hans. The right Hans was used for left ventricular angiography. The angiograms were reviewed. HEMODYNAMICS: Left ventricular end-diastolic pressure was 28, following coronary angiography. Ascending aortic pressure 148/79. There was no significant pressure gradient on pullback across the aortic valve. CORONARY ANGIOGRAPHY: The left main coronary artery contained mild luminal irregularities. The left anterior descending artery and its diagonal branches contained mild luminal irregularities. The large obtuse marginal branch of the circumflex artery contained a greater than 99% stenosis of its mid segment, associated with delayed distal flow. The right coronary artery was dominant. This vessel contained mild disease in its mid segment with less than 30% luminal stenosis. There was at least moderate to severe left ventricular systolic dysfunction with ejection fraction less than 35%. CORONARY ANGIOPLASTY: We proceeded with ad hoc coronary intervention to the circumflex stenosis. We selected a #3.0 XB guiding catheter and advanced to the left coronary ostium. A 0.014 inch Sap Architect 50 guidewire was introduced into the vessel, using a Whisper wire, we were able to navigate the severe proximal tortuosity of the circumflex, and the wire was maneuvered across the lesional segment. Following wire placement in the distal vessel, the lesion was then predilated with a 2.5 mm balloon catheter, following which we established JEREMY 3 flow. Due to the residual severe and ulcerated lesion, we proceeded with deployment of a single, 2.5 mm drug-eluting stent across the lesional segment and the stent was inflated to optimal pressures. Following stenting, a 2.75 noncompliant balloon was used to post-dilate the lesional segment. Following stenting and post-dilatation, post-intervention angiograms revealed an excellent angiographic result, zero residual stenosis and holiness of JEREMY 3 flow. Procedure was well tolerated by the patient and there were no complications. The catheters and the wires were removed, the patient returned to the postprocedure unit in stable condition. CONCLUSION: 1. The patient was admitted with acute non-ST elevation myocardial infarction. 2. 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 3. Nonobstructive irregularities in the LAD and right coronary systems. 4. Successful ad hoc angioplasty and stenting of the circumflex with deployment of a 2.5 mm drug-eluting stent, postdilated with a 2.75 mm balloon catheter. 5. At least moderate to severe left ventricular systolic dysfunction, recommend echocardiographic reassessment of left ventricular systolic function. TID: [id number] RECEIPT: [id number] CA/PRE
[2021-09-28] MEDS ORDERED: SODIUM CHLORIDE 0.9% 1000 ML 1,000 ML IV SCH (14:00)
[2021-09-28] MEDS: METOPROLOL TARTRATE 50 MG TAB PO SCH ×2 (18:10→21:48)
[2021-09-28] MEDS: FAMOTIDINE 20 MG TAB PO SCH ×2 (18:11→21:48)
--- NOTE | 2021-09-28 21:18 | Progress Note ---
Assessment and Plan Assessment and plan: The patient is a 62-year-old female with no significant past medical history aside from tobacco dependence who presented with 3 days of left sternal chest pain with radiation to her back in addition to nonbloody, nonbilious emesis. Patient's labs were remarkable for elevated troponin of 1.620, hyponatremia of 132, and hyperlipidemia. Patient underwent chest x-ray that was unremarkable. The patient will be admitted to the medicine service for management of NSTEMI. #NSTEMI Troponin 1.620--> 2.1-->2.8-->3.150-->2.870-->2.130 Ordered aspirin 325 mg for antiplatelet effect, ordering telemetry, and continue heparin drip with bolus Continue Plavix 75mg. TTE revealing EF 30-35%, normal-sized LV, normal LV wall thickness, normal LV segmental wall motion, normal LV diastolic function, RV is mildly hypokinetic RVSP is 31.4 mmHg Cardiology consulted; appreciate recs. Left heart catherization performed and PCI placed in left circumflex. Continue as needed analgesics Ordering hemoglobin A1c for better risk stratification #SIRS- resolved Heart rate 119, respiratory rate 25 Likely secondary to chest pain and ACS as opposed to infectious etiology Continue to monitor. Should improve as chest pain resolves. #Hyperlipidemia Total cholesterol 217, HDL 33, LDL 178 ASCVD risk score indicates moderate to high intensity statin due to risk of cardiovascular event being 10.2%. Continue atorvastatin 40 mg daily. #Hyponatremiaresolved Sodium 132--> 133-->137 Likely secondary to history of recurrent emesis. Continue to monitor with daily BMP. #Vomiting Continue as needed antiemetics. Continue to monitor. #Tobacco dependence #Tobacco/Smoking cessation counseling - Counseled patient about the importance of smoking cessation and the possible sequelae as a result of continued tobacco consumption. The patient expresses understanding. -Time: +15 mins The high probability of a clinically significant, sudden or life threatening deterioration of the [cardiac] system(s) required my full and direct attention, intervention and personal management. The aggregate critical care time was [60] minutes. This time is in addition to time spent performing reported procedures but includes the following: [x] Data Review and interpretation [x] Patient assessment and monitoring of vital signs [x] Documentation [x] Medication orders and management Disposition Plan: Continue medical managemnt Total Time Spent with Patient (Minutes): 45 min History Interval history: No acute events overnight. Hospitalist Physical - Constitutional Vitals: Temp Pulse Resp BP Pulse Ox 97.8 F 65 26 H 128/80 99 09/28/21 12:55 09/28/21 15:00 09/28/21 15:00 09/28/21 15:00 09/28/21 17:00 General appearance: Present: no acute distress, well-nourished - EENT Eyes: Present: PERRL, EOM intact ENT: hearing intact, clear oral mucosa, dentition normal - Neck Neck: Present: supple, normal ROM - Respiratory Respiratory effort: normal Respiratory: bilateral: CTA - Cardiovascular Rhythm: regular Heart Sounds: Present: S1 & S2 - Extremities Extremities: no ischemia, pulses intact, pulses symmetrical, No edema, normal temperature, normal color, Full ROM Peripheral Pulses: within normal limits - Abdominal General gastrointestinal: soft, non-tender, non-distended, normal bowel sounds - Integumentary Integumentary: Present: clear, warm, dry - Psychiatric Psychiatric: appropriate mood/affect, intact judgment & insight, memory intact, cooperative - Neurologic Neurologic: CNII-XII intact, moves all extremities - Allied Health Allied health notes reviewed: nursing HEART Score - HEART Score Troponin: Troponin T 2.130 ng/mL (0.00-0.029) H* D 09/26/21 05:59 Results - Labs CBC & Chem 7: 09/28/21 07:01 09/28/21 07:01 Labs: Laboratory Last Values WBC 4.8 K/mm3 (4.5-11.0) 09/28/21 07:01 RBC 3.90 M/mm3 (3.65-5.03) 09/28/21 07:01 Hgb 13.1 gm/dl (10.1-14.3) 09/28/21 07:01 Hct 37.1 % (30.3-42.9) 09/28/21 07:01 MCV 95 fl (79-97) 09/28/21 07:01 MCH 34 pg (28-32) H 09/28/21 07:01 MCHC 35 % (30-34) H 09/28/21 07:01 RDW 13.8 % (13.2-15.2) 09/28/21 07:01 Plt Count 184 K/mm3 (140-440) 09/28/21 07:01 Lymph % (Auto) 32.5 % (13.4-35.0) 09/28/21 07:01 [place] % (Auto) 10.1 % (0.0-7.3) H 09/28/21 07:01 Eos % (Auto) 1.1 % (0.0-4.3) 09/28/21 07:01 Baso % (Auto) 1.1 % (0.0-1.8) 09/28/21 07:01 Lymph # (Auto) 1.6 K/mm3 (1.2-5.4) 09/28/21 07:01 [place] # (Auto) 0.5 K/mm3 (0.0-0.8) 09/28/21 07:01 Eos # (Auto) 0.1 K/mm3 (0.0-0.4) 09/28/21 07:01 Baso # (Auto) 0.1 K/mm3 (0.0-0.1) 09/28/21 07:01 Seg Neutrophils % 55.2 % (40.0-70.0) 09/28/21 07:01 Seg Neutrophils # 2.6 K/mm3 (1.8-7.7) 09/28/21 07:01 PT 13.9 Sec. (12.2-14.9) 09/28/21 07:01 INR 0.97 (0.87-1.13) 09/28/21 07:01 APTT 31.7 Sec. (24.2-36.6) 09/25/21 11:13 Heparin Anti-Xa Level 0.32 U.I./ml (0.3-0.7) 09/27/21 20:55 Sodium 137 mmol/L (137-145) 09/28/21 07:01 Potassium 4.3 mmol/L (3.6-5.0) 09/28/21 07:01 Chloride 105.7 mmol/L (98-107) 09/28/21 07:01 Carbon Dioxide 23 mmol/L (22-30) 09/28/21 07:01 Anion Gap 13 mmol/L 09/28/21 07:01 BUN 13 mg/dL (7-17) 09/28/21 07:01 Creatinine 0.6 mg/dL (0.6-1.2) 09/28/21 07:01 Estimated GFR > 60 ml/min 09/28/21 07:01 BUN/Creatinine Ratio 22 % 09/28/21 07:01 Glucose 115 mg/dL (65-100) H 09/28/21 07:01 Calcium 9.2 mg/dL (8.4-10.2) 09/28/21 07:01 Total Bilirubin 1.60 mg/dL (0.1-1.2) H 09/25/21 08:36 AST 398 units/L (5-40) H 09/25/21 08:36 ALT 271 units/L (7-56) H 09/25/21 08:36 Alkaline Phosphatase 86 units/L (35-129) 09/25/21 08:36 Troponin T 2.130 ng/mL (0.00-0.029) H* D 09/26/21 05:59 Total Protein 8.1 g/dL (6.3-8.2) 09/25/21 08:36 Albumin 4.3 g/dL (3.9-5) 09/25/21 08:36 Albumin/Globulin Ratio 1.1 % 09/25/21 08:36 Triglycerides 97 mg/dL (2-149) 09/25/21 08:36 Cholesterol 217 mg/dL (50-199) H 09/25/21 08:36 LDL Cholesterol Direct 178 mg/dL (50-130) H 09/25/21 08:36 HDL Cholesterol 33 mg/dL (40-59) L 09/25/21 08:36 Cholesterol/HDL Ratio 6.57 % 09/25/21 08:36 Lipase 35 units/L (13-60) 09/25/21 08:36 [place]/IV: Voiding Method Toilet Active Medications - Current Medications Current Medications: Generic Name Dose Route Start Last Admin Trade Name Freq PRN Reason Stop Dose Admin Acetaminophen 650 mg 09/25/21 10:40 Acetaminophen 325 Mg Tab PO Q4H PRN Pain MILD(1-3)/Fever >100.5/DUARTE Aspirin 81 mg 09/26/21 10:00 09/28/21 09:57 Aspirin 81 Mg Tab Chew PO 81 mg QDAY BUCK Administration Atorvastatin Calcium 40 mg 09/25/21 22:00 09/27/21 21:09 Atorvastatin 40 Mg Tab PO 40 mg QHS BUCK Administration Clopidogrel Bisulfate 75 mg 09/26/21 12:00 09/28/21 09:57 Clopidogrel 75 Mg Tab PO 75 mg QDAY BUCK Administration Docusate Sodium 100 mg 09/25/21 10:40 Docusate Sodium 100 Mg Cap PO BID PRN Constipation Famotidine 20 mg 09/25/21 12:00 09/28/21 18:11 Famotidine 20 Mg Tab PO Not Given BID [facility] Sodium Chloride 1,000 mls @ 100 mls/hr 09/28/21 14:00 Nacl 0.9% 1000 Ml IV 09/29/21 13:59 DIRECT BUCK Metoprolol Tartrate 50 mg 09/26/21 22:00 09/28/21 18:10 Metoprolol Tartrate 50 Mg Tab PO Not Given BID [facility] Morphine Sulfate 2 mg 09/25/21 10:40 09/28/21 14:41 Morphine 4 Mg/1 Ml Inj IV 2 mg Q4H PRN Administration Pain , Severe (7-10) Nitroglycerin 0.4 mg 09/25/21 11:49 Nitroglycerin 0.4 Mg Tab Subl SL .Q5MIN PRN Chest Pain Ondansetron HCl 4 mg 09/25/21 10:40 09/28/21 13:42 Ondansetron 4 Mg/2 Ml Inj IV 4 mg Q8H PRN Administration Nausea And Vomiting Oxycodone/Acetaminophen 1 tab 09/25/21 10:40 09/28/21 18:11 Oxycodone /Acetaminophen 5-325mg Tab PO 1 tab Q6H PRN Administration Pain, Moderate (4-6) Sodium Chloride 10 ml 09/25/21 22:00 09/28/21 18:11 Sodium Chloride 0.9% 10 Ml Flush Syringe IV Not Given BID BUCK Sodium Chloride 10 ml 09/25/21 10:40 Sodium Chloride 0.9% 10 Ml Flush Syringe IV PRN PRN LINE FLUSH
[2021-09-29 06:28] LABS: Basophils # (Auto) 0.1 K/mm3 (0.0-0.1); Basophils % (Auto) 2.2 % (0.0-1.8); Eosinophils # (Auto) 0.1 K/mm3 (0.0-0.4); Eosinophils % (Auto) 1.2 % (0.0-4.3); Hematocrit 30.7 % (30.3-42.9); Hemoglobin 10.6 gm/dl (10.1-14.3); Lymphocytes # (Auto) 1.5 K/mm3 (1.2-5.4); Lymphocytes % (Auto) 25.1 % (13.4-35.0); Mean Corpuscular HGB Conc 35 % (30-34); Mean Corpuscular Volume 95 fl (79-97); Monocytes # (Auto) 0.7 K/mm3 (0.0-0.8); Monocytes % (Auto) 10.8 % (0.0-7.3); Platelet Count 178 K/mm3 (140-440); Red Blood Count 3.23 M/mm3 (3.65-5.03); Red Cell Distribution Width 13.6 % (13.2-15.2)
[2021-09-29 06:50] LABS: Blood Urea Nitrogen 14 mg/dL (7-17); Calcium 8.6 mg/dL (8.4-10.2); Hemolysis Index 0
[2021-09-29 07:04] LABS: BUN/Creatinine Ratio 20
[2021-09-29 07:52] VITALS: BP 93/60
--- NOTE | 2021-09-29 08:51 | XRay Report ---
CHEST 1 VIEW INDICATION: post pci. COMPARISON: 09/25/2021 FINDINGS: Support devices: None. Heart: Within normal limits. Lungs/Pleura: No acute air space or interstitial disease. No pleural abnormality or pneumothorax. Additional findings: None. IMPRESSION: No acute findings. No change since 09/25/2021. Signer Name: Elmer Menendez Jr, MD Signed: 09/29/2021 8:47 AM Workstation Name: [id number]
[2021-09-29] MEDS: ASPIRIN 81 MG TAB CHEW PO SCH (10:42)
[2021-09-29] MEDS: CLOPIDOGREL 75 MG TAB PO SCH (10:42)
[2021-09-29] MEDS: FAMOTIDINE 20 MG TAB PO SCH (10:42)
[2021-09-29] MEDS: METOPROLOL TARTRATE 50 MG TAB PO SCH (10:42)
--- NOTE | 2021-09-29 12:42 | Discharge Summary ---
Providers - Providers Date of Admission: 09/25/21 10:40 Date of discharge: 09/29/21 Attending physician: MICHELLE ESCOBAR MD 09/25/21 10:40 Consult to Physician [CONS] Routine Comment: Consulting Provider: ELOY PORRAS Physician Instructions: Reason For Exam: NSTEMI 09/28/21 Consult to Cardiac Rehabilitation [CONS] Routine Reason For Exam: post pci Primary care physician: DEWAYNE HARRISON Hospitalization Reason for admission: NSTEMI Condition: Serious Hospital course: 61-year-old female with a history of tobacco dependence who presented to the emergency department with 3 days of substernal chest pain. She was found to have elevated troponin and admitted for management of NSTEMI. Cardiology was consulted and cardiac cath was performed. Stents were placed in the circumflex artery. After overnight observation, patient was discharged home with medications and instructions to follow-up with cardiology within 1 week. Disposition: 30 STILL A PATIENT Final Discharge Diagnosis (Prints w/discharge instructions): NSTEMI. Systemic inflammatory response. Hyperlipidemia. Hyponatremia. Tobacco dependence Time spent for discharge: 40 minutes Core Measure Documentation - Palliative Care Palliative Care/ Comfort Measures: Not Applicable - Core Measures Any of the following diagnoses?: acute IL - Acute IL Discharge Requirements Aspirin at discharge: Yes DONAL/ARB for LVSD if EF <40%: Not Applicable Beta abigail at discharge: Yes Statin for LDL = or >100 mg/dl on DC: Yes Exam - Physical Exam Narrative exam: GENERAL: Thin woman. Sitting on the side of the bed in no acute distress. HEENT: Normocephalic. Atraumatic. NECK: Supple. CHEST/LUNGS: CTAB on room air HEART/CARDIOVASCULAR: RRR. No murmur, rubs or gallops appreciated. ABDOMEN: +BS. NT/ND. : Right groin bandage, no hematoma felt or bruit auscultated SKIN: No rashes noted. NEURO: No focal motor deficit. Follows all commands and is ambulatory. MUSCULOSKELETAL: No joint effusion EXTREMITIES: Right upper extremity ecchymoses right groin ecchymoses. PSYCH: Cooperative. - Constitutional Vitals: Temp Pulse Resp BP Pulse Ox 98.8 F 70 18 93/60 98 09/29/21 07:50 09/29/21 07:50 09/29/21 07:50 09/29/21 07:50 09/29/21 07:50 Plan Care Plan Goals: Please schedule an appointment with cardiology outpatient (Dr. Charlton). Please make sure to take all medications as prescribed. We would also like for you to establish care with a primary care doctor for general medical needs and age appropriate cancer screenings. Follow up with: JOHN CHARLTON MD [Staff Physician] - 7 Days DEWAYNE HARRISON MD [Primary Care Provider] - 7 Days Forms: [facility] PCI D/C Instructions Prescriptions: AtorvaSTATin [Lipitor] 40 mg PO QHS 30 Days #30 tablet Aspirin [Aspirin BABY CHEW TAB] 81 mg PO QDAY 30 Days #30 tab.chew Metoprolol [Lopressor TAB] 50 mg PO BID 30 Days #60 tablet Nitroglycerin [Nitrostat] 0.4 mg SL .Q5MIN PRN 30 Days #30 tablet PRN Reason: Chest Pain Clopidogrel [Plavix] 75 mg PO QDAY 30 Days #30 tablet
--- NOTE | 2021-09-29 13:52 | Progress Note ---
Assessment and Plan - Patient Problems (1) Non-STEMI (non-ST elevated myocardial infarction) Current Visit: Yes Status: Acute Plan to address problem: Patient admitted with non-ST elevation myocardial infarction, treated with coronary stenting to the occluded circumflex, excellent post intervention result. She is stable for discharge on guideline directed medical therapy including aspirin and Plavix. Follow-up in our cardiology office in 7 to 10 days. Patient has also been advised to stop smoking. Subjective Date of service: 09/29/21 Principal diagnosis: Acute ME Interval history: Patient looks and feels well today, no chest pain, no cardiac complaints. Her right groin cath site is well-healed. She is tolerating dual oral antiplatelet therapy with aspirin and Plavix. Objective Vital Signs Temp Pulse Resp BP BP Pulse Ox 09/29/21 07:50 98.8 F 70 18 93/60 98 09/29/21 04:05 98.1 F 61 16 86/47 99 09/29/21 04:04 60 77/49 98 09/29/21 02:18 95 09/29/21 01:14 98.1 F 66 20 99/63 97 09/28/21 22:00 67 18 94 09/28/21 21:48 67 85/54 09/28/21 20:40 97.4 F L 67 16 85/54 99 09/28/21 17:00 99 09/28/21 15:00 65 26 H 128/80 97 09/28/21 14:45 67 26 H 128/76 95 09/28/21 14:41 11 L 09/28/21 14:30 67 14 130/76 99 09/28/21 14:15 71 12 138/79 98 09/28/21 14:00 68 19 133/78 96 - Physical Examination General: Appears Well, No Apparent Distress HEENT: Positive: PERRL Neck: Positive: neck supple, trachea midline Cardiac: Positive: Reg Rate and Rhythm Lungs: Positive: Decreased Breath Sounds Neuro: Positive: Grossly Intact Abdomen: Positive: Soft, Active Bowel Sounds Skin: Positive: Clear Extremities: Absent: edema - Labs and Meds CBC 09/29/21 Range/Units 05:57 WBC 6.1 (4.5-11.0) K/mm3 RBC 3.23 L (3.65-5.03) M/mm3 Hgb 10.6 (10.1-14.3) gm/dl Hct 30.7 D (30.3-42.9) % Plt Count 178 (140-440) K/mm3 Lymph # (Auto) 1.5 (1.2-5.4) K/mm3 [place] # (Auto) 0.7 (0.0-0.8) K/mm3 Eos # (Auto) 0.1 (0.0-0.4) K/mm3 Baso # (Auto) 0.1 (0.0-0.1) K/mm3 Comprehensive Metabolic Panel 09/29/21 Range/Units 05:57 Sodium 137 (137-145) mmol/L Potassium 4.7 (3.6-5.0) mmol/L Chloride 102.7 (98-107) mmol/L Carbon Dioxide 24 (22-30) mmol/L BUN 14 (7-17) mg/dL Creatinine 0.7 (0.6-1.2) mg/dL Glucose 103 H (65-100) mg/dL Calcium 8.6 (8.4-10.2) mg/dL - EKG Sinus rhythms and dysrhythmias: sinus rhythm Chamber hypertrophy or enlargement: left ventricular hypertro Repolarization changes or abnormalities: nonspecific abnormality, ST segment, and/or T wave
--- NOTE | 2021-10-01 19:48 | Electrocardiograph Report ---
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
--- NOTE | 2021-10-01 19:56 | Electrocardiograph Report ---
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
== END 2021-09-29 14:15 | disposition home or self-care (01) | DRG 247 ==
LOC: ED 07:33 → 4A 10:40
PROVIDERS: ADMIT Student in an Organized Health Care Education/Training Program; ATTEND Student in an Organized Health Care Education/Training Program
PROC: 4A023N7 Measurement of Cardiac Sampling and Pressure, Left Heart, Percutaneous Approach (ICD-10-PCS; principal; 2021-09-28)
PROC: 027034Z Dilation of Coronary Artery, One Artery with Drug-eluting Intraluminal Device, Percutaneous Approach (ICD-10-PCS; 2021-09-28)
PROC: B2111ZZ Fluoroscopy of Multiple Coronary Arteries using Low Osmolar Contrast (ICD-10-PCS; 2021-09-28)
PROC: B2151ZZ Fluoroscopy of Left Heart using Low Osmolar Contrast (ICD-10-PCS; 2021-09-28)
DX: I21.4 Non-ST elevation (NSTEMI) myocardial infarction (principal); E87.1 Hypo-osmolality and hyponatremia; R65.10 Systemic inflammatory response syndrome (SIRS) of non-infectious origin without acute organ dysfunction; E78.5 Hyperlipidemia, unspecified; J44.9 Chronic obstructive pulmonary disease, unspecified; F17.200 Nicotine dependence, unspecified, uncomplicated; Z82.49 Family history of ischemic heart disease and other diseases of the circulatory system; Z71.6 Tobacco abuse counseling
CPT/HCPCS: 36415; 71045; 80048; 80053; 80061; 83690; 84484; 85014; 85018; 85025; 85049; 85520; 85610; 85730; 92928; 93005; 93306; 93458; 99406; G0378; J1815; J3490; Q0162; C1725; C1769; C1874; C1887; C1894; C8929; C9600; J1644; J1650; J2250; J2270; J2405; J3010; J7030; J7040; Q9967